=== PATIENT | female | born 1995 | race Caucasian/White ===

== ENCOUNTER 2017-10-19 10:26 | Inpatient (IN) | payer OTHER ==
[2017-10-19] MEDS ORDERED: METHYLERGONOVINE 0.2 MG INJ IM ×3 (12:00→19:00)
[2017-10-19] MEDS ORDERED: OXYTOCIN 30 UNITS/LR 500 ML IV ×4 (12:00→19:00)
[2017-10-19] MEDS ORDERED: CARBOPROST 250 MCG INJ IM ×3 (12:00→19:00)
[2017-10-19] MEDS ORDERED: MISOPROSTOL 200 MCG TAB PR ×3 (12:00→19:00)
[2017-10-19 12:09] LABS: ADD MAN DIFF? NO
[2017-10-19 12:17] LABS: BASOPHILS % 0.2 % (0.0-2.0); EOSINOPHILS # 0.1 10^3/ul (0.0-0.5); EOSINOPHILS % 1.5 % (0.0-7.0); HEMATOCRIT 36.4 % (37.0-47.0); HEMOGLOBIN 12.7 g/dl (12.0-16.0); LYMPHOCYTES # 2.1 10^3/ul (0.8-2.9); LYMPHOCYTES % 25.9 % (15.0-51.0); MEAN CORPUSCULAR HEMOGLOBIN 29.8 pg (29.0-33.0); MEAN CORPUSCULAR HGB CONC 34.9 g/dl (32.0-37.0); MEAN CORPUSCULAR VOLUME 85.4 fl (82.0-101.0); MONOCYTE # 0.5 10^3/ul (0.3-0.9); MONOCYTES % 5.7 % (0.0-11.0); NEUTROPHIL # 5.5 10^3/ul (1.6-7.5); NEUTROPHILS % 66.2 % (39.0-77.0); PLATELET COUNT 286 10^3/UL (140-415); RED BLOOD COUNT 4.26 10^6/ul (4.20-5.40)
[2017-10-19 12:17] LABS: WHITE BLOOD COUNT 8.3 10^3/ul (4.8-10.8)
[2017-10-19 12:53] LABS: INR 0.97
[2017-10-19 12:54] LABS: PARTIAL THROMBOPLASTIN TIME 29.2 Sec (25.0-35.0)
[2017-10-19] MEDS: CEFAZOLIN 2 GM/50 ML (PMX) 50 ML IVPB (13:00)
[2017-10-19] MEDS: LACTATED RINGER'S 1,000 ML IV ×2 (13:10→22:02)
[2017-10-19 14:32] LABS: HEPATITIS B SURFACE ANTIGEN NEGATIVE (NEGATIVE)
[2017-10-19] MEDS ORDERED: FENTAnyl 50 MCG/ML VIAL (15:13)
[2017-10-19] MEDS ORDERED: PHENYLephrine (100 MCG/ML) 5ML SYG (15:13)
[2017-10-19] MEDS ORDERED: morphine SULFATE/PF (10 MG/10 ML) INJ (15:13)
[2017-10-19] MEDS ORDERED: DEXAMETHASONE 4 MG/ML 1 ML INJ (15:30)
[2017-10-19] MEDS ORDERED: ONDANSETRON 4 MG INJ (15:30)
[2017-10-19] MEDS ORDERED: OXYTOCIN 10 UNIT INJ (15:34)
[2017-10-19] MEDS: OXYTOCIN 30 UNITS/LR 500 ML IV (16:25)
[2017-10-19] MEDS ORDERED: NALOXONE (0.4 MG/ML) INJ IV (16:30)
[2017-10-19] MEDS ORDERED: HYDROmorphONE 0.5 MG/0.5 ML SYG IV ×2 (16:30)
[2017-10-19] MEDS ORDERED: ONDANSETRON 4 MG INJ IV (16:30)
[2017-10-19] MEDS ORDERED: TRIMETHOBENZAMIDE 100 MG/ML VIAL IM (16:30)
[2017-10-19] MEDS ORDERED: ZOLPIDEM 5 MG TAB PO (16:30)
[2017-10-19] MEDS: KETOROLAC 30 MG INJ IV (16:57)
[2017-10-19] MEDS ORDERED: NA PHOSPHATE/BIPHOS 133 ML ENEMA PR (19:00)
[2017-10-19] MEDS ORDERED: CEFAZOLIN 2 GM/50 ML (PMX) 50 ML IV (19:00)
[2017-10-19 19:51] LABS: RAPID PLASMA REAGIN NONREACTIVE (NR)
[2017-10-19] MEDS: SENNA/DOCUSATE NA (8.6MG/50MG) TAB PO (21:00)
[2017-10-19] MEDS: IBUPROFEN 800 MG TAB PO (22:00)
[2017-10-20] MEDS: CEFAZOLIN 2 GM/50 ML (PMX) 50 ML IVPB ×3 (00:23→16:34)
[2017-10-20] MEDS: IBUPROFEN 800 MG TAB PO ×3 (06:10→21:37)
[2017-10-20] MEDS: LACTATED RINGER'S 1,000 ML IV (06:54)
[2017-10-20] MEDS: LANOLIN 7 GM TUBE TOP (08:24)
[2017-10-20] MEDS: SENNA/DOCUSATE NA (8.6MG/50MG) TAB PO ×2 (08:25→20:00)
[2017-10-20 09:33] LABS: ADD MAN DIFF? NO
[2017-10-20 09:36] LABS: BASOPHILS % 0.2 % (0.0-2.0); EOSINOPHILS # 0.1 10^3/ul (0.0-0.5); EOSINOPHILS % 0.7 % (0.0-7.0); HEMATOCRIT 27.7 % (37.0-47.0); HEMOGLOBIN 9.8 g/dl (12.0-16.0); LYMPHOCYTES # 2.3 10^3/ul (0.8-2.9); LYMPHOCYTES % 26.6 % (15.0-51.0); MEAN CORPUSCULAR HEMOGLOBIN 30.2 pg (29.0-33.0); MEAN CORPUSCULAR HGB CONC 35.4 g/dl (32.0-37.0); MEAN CORPUSCULAR VOLUME 85.5 fl (82.0-101.0); MEAN PLATELET VOLUME 11.6 fl (7.4-10.4); MONOCYTE # 0.7 10^3/ul (0.3-0.9); MONOCYTES % 8.7 % (0.0-11.0); NEUTROPHIL # 5.4 10^3/ul (1.6-7.5); NEUTROPHILS % 63.6 % (39.0-77.0); PLATELET COUNT 247 10^3/UL (140-415); RED BLOOD COUNT 3.24 10^6/ul (4.20-5.40); RED CELL DISTRIBUTION WIDTH 12.7 % (11.5-14.5)
[2017-10-20 09:36] LABS: WHITE BLOOD COUNT 8.5 10^3/ul (4.8-10.8)
[2017-10-20] MEDS: CLINDAMYCIN 300 MG CAP PO ×3 (12:05→23:51)
[2017-10-20] MEDS: KETOROLAC 30 MG INJ IV (12:05)
[2017-10-20] MEDS: OXYCODONE/ACETAMINOPHEN (5/325) TAB PO (20:00)
[2017-10-20] MEDS ORDERED: BISACODYL 10 MG SUPP PR (21:31)
[2017-10-20] MEDS: BISACODYL 10 MG SUPP PR (21:37)
[2017-10-21] MEDS: OXYCODONE/ACETAMINOPHEN (5/325) TAB PO ×2 (03:30→16:39)
[2017-10-21] MEDS: CLINDAMYCIN 300 MG CAP PO ×4 (06:13→23:02)
[2017-10-21] MEDS: IBUPROFEN 800 MG TAB PO ×3 (06:13→21:28)
[2017-10-21] MEDS: SENNA/DOCUSATE NA (8.6MG/50MG) TAB PO ×2 (09:14→21:28)
[2017-10-21] MEDS: HYDROCODONE/APAP (5/325) TAB PO (23:02)
[2017-10-22] MEDS: CLINDAMYCIN 300 MG CAP PO ×2 (05:29→12:28)
[2017-10-22] MEDS: IBUPROFEN 800 MG TAB PO ×2 (05:29→14:00)
[2017-10-22] MEDS: MEASLES,MUMPS,RUBELLA VACCINE INJ SC* (09:28)
[2017-10-22] MEDS: DIPHTH/TET/ACEL PERTUSS (ADULT) 0.5 ML VIAL IM* (09:28)
[2017-10-22] MEDS: SENNA/DOCUSATE NA (8.6MG/50MG) TAB PO (09:29)
[2017-10-22] MEDS: HYDROCODONE/APAP (5/325) TAB PO (12:28)
== END 2017-10-22 14:50 | disposition home or self-care (01) | DRG 766 ==
LOC: OBT 10:26 → L-D 10:26 → OBT 11:35 → L-D 11:30 → PP1 18:36
PROVIDERS: Obstetrics & Gynecology
PROC: 10D00Z1 Extraction of Products of Conception, Low, Open Approach (ICD-10-PCS; principal; 2017-10-19 18:00)
PROC: 4A1HXCZ Monitoring of Products of Conception, Cardiac Rate, External Approach (ICD-10-PCS; 2017-10-19 18:00)
DX: O34.211 Maternal care for low transverse scar from previous cesarean delivery (principal); Z37.0 Single live birth; Z3A.38 38 weeks gestation of pregnancy
CPT/HCPCS: 85025; 85610; 85730; 86592; 86850; 86900; 86901; 86920; 87340; 90715; 94760; 99464

== ENCOUNTER 2017-11-02 21:58 | Emergency (ER) | payer OTHER | END 2017-11-03 00:05 | disposition home or self-care (01) | LOC: FTE 11-03 00:05 | DX: B37.2 Candidiasis of skin and nail (principal) | CPT/HCPCS: 99283; Z7502 ==

== ENCOUNTER 2017-11-06 15:05 | Emergency (ER) | payer OTHER ==
[2017-11-06] MEDS: TRIMETHOPRIM/SULFAMETHOX (DS) TAB PO (18:23)
[2017-11-06] MEDS: ONDANSETRON (ODT) 4 MG TAB ODT (18:24)
[2017-11-06] MEDS: HYDROCODONE/APAP (10/325) TAB PO (18:24)
== END 2017-11-06 18:43 | disposition home or self-care (01) ==
LOC: FTE 15:05
DX: O86.0 Infection of obstetric surgical wound (principal); B97.89 Other viral agents as the cause of diseases classified elsewhere
CPT/HCPCS: 99284; Z7502

== ENCOUNTER 2018-04-06 09:01 | Emergency (ER) | payer OTHER ==
[2018-04-06] MEDS: ONDANSETRON 4 MG INJ IV (10:46)
[2018-04-06] MEDS: LIDOCAINE/MYLANTA 40 ML BTL PO (10:46)
[2018-04-06] MEDS: SOD CHLORIDE 0.9% 1,000 ML IV (10:46)
[2018-04-06 10:49] LABS: ADD MAN DIFF? NO
[2018-04-06 10:52] LABS: BASOPHILS % 0.3 % (0.0-2.0); EOSINOPHILS # 0.2 10^3/ul (0.0-0.5); EOSINOPHILS % 1.3 % (0.0-7.0); HEMATOCRIT 40.5 % (37.0-47.0); HEMOGLOBIN 13.9 g/dl (12.0-16.0); LYMPHOCYTES % 15.5 % (15.0-51.0); MEAN CORPUSCULAR HGB CONC 34.3 g/dl (32.0-37.0); MEAN CORPUSCULAR VOLUME 87.5 fl (82.0-101.0); MEAN PLATELET VOLUME 9.9 fl (7.4-10.4); MONOCYTE # 0.7 10^3/ul (0.3-0.9); MONOCYTES % 5.8 % (0.0-11.0); NEUTROPHIL # 9.8 10^3/ul (1.6-7.5); NEUTROPHILS % 76.8 % (39.0-77.0); PLATELET COUNT 312 10^3/UL (140-415); RED BLOOD COUNT 4.63 10^6/ul (4.20-5.40); RED CELL DISTRIBUTION WIDTH 11.9 % (11.5-14.5)
[2018-04-06 10:52] LABS: WHITE BLOOD COUNT 12.7 10^3/ul (4.8-10.8)
[2018-04-06 11:21] LABS: ANION GAP 14 (8-16); BLOOD UREA NITROGEN 7 mg/dl (7-20); CALCIUM 9.1 mg/dl (8.4-10.2); CARBON DIOXIDE 24 mmol/L (21-31); CHLORIDE 109 mmol/L (97-110); CREATININE 0.48 mg/dl (0.44-1.00); GLUCOSE 106 mg/dl (70-220); POTASSIUM 3.8 mmol/L (3.5-5.1); SODIUM 143 mmol/L (135-144)
[2018-04-06] MEDS ORDERED: ACETAMINOPHEN 325 MG TAB PO (12:00)
[2018-04-06] MEDS ORDERED: ONDANSETRON 4 MG INJ IV (12:00)
== END 2018-04-06 12:15 | disposition home or self-care (01) ==
LOC: E/R 09:01
DX: R55 Syncope and collapse (principal); R10.13 Epigastric pain
CPT/HCPCS: 36415; 70450; 80048; 81025; 85025; 93005; 96374; 99285-25